=== PATIENT | female | born 1940 | race Caucasian/White ===

== ENCOUNTER 2017-07-06 11:40 | Inpatient (IN) ==
--- NOTE | 2017-07-05 21:19 | Discharge Summary ---
<Claire Lovelace E - Last Filed: 07/05/17 21:17> Date of Encounter: 07/05/17 - Discharge Diagnosis (1) Osteoarthritis of left knee Priority: Primary Status: Chronic Qualifiers: Osteoarthritis type: unspecified Qualified Code(s): M17.12 - Unilateral primary osteoarthritis, left knee (2) Seizure disorder Priority: Secondary Status: Chronic (3) Obesity Priority: Secondary Status: Chronic Qualifiers: Obesity type: unspecified obesity type Obesity classification: unspecified obesity classification Serious obesity comorbidity presence: unspecified whether serious comorbidity present Qualified Code(s): E66.9 - Obesity, unspecified (4) Noncompliance with CPAP treatment Priority: Secondary Status: Chronic (5) HTN (hypertension) Priority: Secondary Status: Chronic Qualifiers: Hypertension type: unspecified Qualified Code(s): I10 - Essential (primary ) hypertension (6) HLD (hyperlipidemia) Priority: Secondary Status: Chronic Qualifiers: Hyperlipidemia type: unspecified Qualified Code(s): E78.5 - Hyperlipidemia , unspecified (7) Diabetes mellitus Priority: Secondary Status: Chronic Qualifiers: Diabetes mellitus type: other specified (including KYE) Diabetes mellitus complication status: with unspecified complications Diabetes mellitus residential insulin use: with rn long term care use Qualified Code(s): E13.8 - Other specified diabetes mellitus with unspecified complications; Z79.4 - group home ( current) use of insulin; Z79.4 - group home (current) use of insulin; Z79.4 - rn long term care (current) use of insulin; Z79.4 - group home (current) use of insulin (8) rn long term care current use of anticoagulant Priority: Secondary Status: Chronic (9) History of CVA (cerebrovascular accident) Status: Chronic - Discharge Medications Home Medications: Citalopram Hydrobromide [Celexa] 40 mg PO DAILY 07/23/15 [History] Insulin ASPART [NovoLOG] 10 - 20 unit SQ TID 07/23/15 [History] Insulin DETEMIR [Levemir] 40 unit SQ BID 07/23/15 [History] Montelukast [Singulair] 10 mg PO HS 07/23/15 [History] Potassium Chloride [K-Tab ER] 10 meq PO DAILY 07/23/15 [History] Warfarin [Coumadin] 6 mg PO SUTUFR 07/23/15 [History] clonazePAM [Klonopin] 0.5 mg PO BID 07/23/15 [History] Enoxaparin [Lovenox] 30 mg SQ Q12HR 03/02/17 [History] Furosemide [Lasix] 40 mg PO DAILY 03/02/17 [History] OxyCODONE Immed Rel [Roxicodone 5 MG] 5 mg PO Q6HR PRN 7 Days #28 tablet [Rx] Atorvastatin [Lipitor] 40 mg PO HS 07/06/17 [History] Carvedilol 12.5 mg PO BID 07/06/17 [History] Gabapentin [Neurontin] 300 mg PO TID 07/06/17 [History] Phenytoin [Dilantin] 200 mg PO Q12HR 07/06/17 [History] Warfarin [Coumadin] 3 mg PO MOWETHSA 07/06/17 [History] Allergies/Adverse Reactions: 3 Allergy/AdvReac Type Severity Reaction Status Date / Time exenatide [From Byetta] Allergy Rash Verified 07/06/17 12:35 fentanyl [From Duragesic] Allergy Blister Verified 07/06/17 12:35 Iodinated Contrast- Oral and Allergy Rash Verified 07/06/17 12:35 IV Dye morphine Allergy Itching Verified 07/06/17 12:35 Penicillins [PCN] Allergy Rash Verified 07/06/17 12:35 aspirin AdvReac Rash Verified 07/06/17 12:35 cilostazol AdvReac Vomiting Verified 07/06/17 12:35 duloxetine [From Cymbalta] AdvReac Vomiting Verified 07/06/17 12:35 latex AdvReac Blister Verified 07/06/17 12:35 levofloxacin [From Levaquin] AdvReac Vomiting Verified 07/06/17 12:35 ondansetron AdvReac Itching Verified 07/06/17 12:35 [From Zofran (as hydrochloride)] Sulfa (Sulfonamide AdvReac Vomiting Verified 07/06/17 12:35 Antibiotics) Telithromycin [From Ketek] AdvReac Itching Verified 07/06/17 12:35 Primary care physician: Telma Reynolds CNP - Patient Status Disposition: Transfer Inpatient Rehab Fac Condition: Good - Discharge Instructions Follow Up With: Telma Reynolds CNP [Primary Care Provider] - - Hospital Course Hospital course: Ms. Gruber is a 76 year old female - Time Spent with Patient Total time spent providing and/or coordinating discharge services: <Carlos Jones - Last Filed: 07/09/17 08:30> Date of Encounter: 07/09/17 Time of Encounter: 08:29 - Discharge Diagnosis (1) Anticoagulated on Coumadin Priority: Secondary Status: Chronic (2) History of CVA (cerebrovascular accident) Priority: Secondary Status: Chronic (3) DMII (diabetes mellitus, type 2) Priority: Secondary Status: Chronic Qualifiers: Diabetes mellitus complication status: without complication Diabetes mellitus residential insulin use: unspecified residential insulin use status Qualified Code(s): E11.9 - Type 2 diabetes mellitus without complications (4) HTN (hypertension) Priority: Secondary Status: Chronic Qualifiers: Hypertension type: essential hypertension Qualified Code(s): I10 - Essential (primary) hypertension (5) Obesity (BMI 35.0-39.9 without comorbidity) Priority: Secondary Status: Chronic (6) Osteoarthritis of left knee Priority: Primary Status: Chronic Qualifiers: Osteoarthritis type: unspecified Qualified Code(s): M17.12 - Unilateral primary osteoarthritis, left knee (7) Seizure disorder Priority: Secondary Status: Chronic (8) HTN (hypertension) Status: Chronic Qualifiers: Hypertension type: unspecified Qualified Code(s): I10 - Essential (primary ) hypertension (9) HLD (hyperlipidemia) Priority: Secondary Status: Chronic Qualifiers: Hyperlipidemia type: unspecified Qualified Code(s): E78.5 - Hyperlipidemia , unspecified (10) Status post total left knee replacement Priority: Primary Status: Acute (11) Acute blood loss anemia Priority: Primary Status: Acute Primary care physician: Telma Reynolds CNP - Patient Status Functional capacity at discharge: uses cane/walker Overall status at discharge: patient is progressing back to baseline - Hospital Course Hospital course: Ms. Gruber is a 76 year old female Status post left total knee replacement The patient had an uneventful postoperative course. They received antibiotics and physical therapy and were discharged in stable condition. There will follow -up in the office in 2 weeks. - Time Spent with Patient Total time spent providing and/or coordinating discharge services:
--- NOTE | 2017-07-05 21:24 | Physician Discharge Referral ---
ExtendedCare Referral Info Transfer To: [facility] Provider in Charge: Dr Carlos Jones - Diagnosis (1) Status post total left knee replacement Priority: Primary Status: Acute (2) Osteoarthritis of left knee Priority: Primary Status: Chronic (3) Seizure disorder Priority: Secondary Status: Chronic (4) Obesity Priority: Secondary Status: Chronic (5) Noncompliance with CPAP treatment Priority: Secondary Status: Chronic (6) HTN (hypertension) Priority: Secondary Status: Chronic (7) HLD (hyperlipidemia) Priority: Secondary Status: Chronic (8) Diabetes mellitus Priority: Secondary Status: Chronic (9) halfway current use of anticoagulant Priority: Secondary Status: Chronic (10) History of CVA (cerebrovascular accident) Priority: Secondary Status: Chronic Expected Duration of Placement: less than 30 days Prognosis: Good Aware of Diagnosis: Patient Aware of Prognosis: Patient - Transfer Medications Home Medications: Citalopram Hydrobromide [Celexa] 40 mg PO DAILY 07/23/15 [History] Insulin ASPART [NovoLOG] 10 - 20 unit SQ TID 07/23/15 [History] Insulin DETEMIR [Levemir] 40 unit SQ BID 07/23/15 [History] Montelukast [Singulair] 10 mg PO HS 07/23/15 [History] Potassium Chloride [K-Tab ER] 10 meq PO DAILY 07/23/15 [History] Warfarin [Coumadin] 6 mg PO SUTUFR 07/23/15 [History] clonazePAM [Klonopin] 0.5 mg PO BID 07/23/15 [History] Enoxaparin [Lovenox] 30 mg SQ Q12HR 03/02/17 [History] Furosemide [Lasix] 40 mg PO DAILY 03/02/17 [History] OxyCODONE Immed Rel [Roxicodone 5 MG] 5 mg PO Q6HR PRN 7 Days #28 tablet [Rx] Atorvastatin [Lipitor] 40 mg PO HS 07/06/17 [History] Carvedilol 12.5 mg PO BID 07/06/17 [History] Gabapentin [Neurontin] 300 mg PO TID 07/06/17 [History] Phenytoin [Dilantin] 200 mg PO Q12HR 07/06/17 [History] Warfarin [Coumadin] 3 mg PO MOWETHSA 07/06/17 [History] Allergies/Adverse Reactions: 3 Allergy/AdvReac Type Severity Reaction Status Date / Time exenatide [From Byetta] Allergy Rash Verified 07/06/17 12:35 fentanyl [From Duragesic] Allergy Blister Verified 07/06/17 12:35 Iodinated Contrast- Oral and Allergy Rash Verified 07/06/17 12:35 IV Dye morphine Allergy Itching Verified 07/06/17 12:35 Penicillins [PCN] Allergy Rash Verified 07/06/17 12:35 aspirin AdvReac Rash Verified 07/06/17 12:35 cilostazol AdvReac Vomiting Verified 07/06/17 12:35 duloxetine [From Cymbalta] AdvReac Vomiting Verified 07/06/17 12:35 latex AdvReac Blister Verified 07/06/17 12:35 levofloxacin [From Levaquin] AdvReac Vomiting Verified 07/06/17 12:35 ondansetron AdvReac Itching Verified 07/06/17 12:35 [From Zofran (as hydrochloride)] Sulfa (Sulfonamide AdvReac Vomiting Verified 07/06/17 12:35 Antibiotics) Telithromycin [From Ketek] AdvReac Itching Verified 07/06/17 12:35 - Respiratory Orders Smoking Cessation: Smoking cessation has been advised. For more information, call the [place] Tobacco Quit Line at 9-044-EJBK-NOW. - Lab Orders Lab Orders: Other (include drug levels w/frequency) (PT/INR for Coumadin monitoring. Patient therapeutic upon discharge at 2.2. Will discontinue Lovenox at this time.) - Ancillary Orders May use pressure relief devices daily prn, May go on HEIKE w/family/respon green party w /meds at nurse discretion PRN, May consult with Dentist, Senior Operations Analyst, Inspector Metal Can PRN - Mobility Orders Chair, Ambulate - Rehabiliation Orders Rehab Potential: Good Rehab Orders: Evaluation for Physical Therapy, Evaluation for Occupational Therapy Other: Total Knee replacement Precautions x 6 weeks Apply cold therapy wrap 3-6x/day for 20 minutes at a time. Encourage ambulation throughout the day and incentive spirometer 10x/hour. Elevate affected extremity above heart as tolerated. Brace: Wear knee immobilizer at night x 2 weeks. - Treatments Skin tear care topically daily PRN per policy List/Other: Opsite placed. Keep dressing intact until first follow up appointment. If > 50% saturated, notify office, remove dressing and place appropriate dressing back in place. Leave Zipline intact. Opsite dressing is water resistant, not water- proof. OK to shower, but do not get dressing wet. - Diet Orders Regular CERTIFICATION: I certify that the transfer of the above named patient to an Extended Care Facility is necessary for the continuing treatment of the diagnosis listed. The above information is true and accurate reflection of patient's current condition. Confidential - Redisclosure prohibited without a patient's written consent.
[2017-07-06] MEDS ORDERED: Lidocaine -MPF 1% 2 ML VIAL ID ONE (12:02)
[2017-07-06] MEDS ORDERED: Albuterol 2.5 MG/3 ML NEBULIZER IH ONE (12:02)
[2017-07-06] MEDS ORDERED: Clindamycin 900 MG/50 ML 900 MG/50 ML IV.SOLN IVPB ONE (12:02)
--- NOTE | 2017-07-06 12:24 | History & Physical Report ---
Date of Encounter: 07/06/17 Time of Encounter: 12:24 24 Hour HP Update - Instructions Instructions: If the History and Physical is less than 30 days old and was completed prior to A.M. admission and or procedure and has NOT been updated on calendar day of procedure please complete this update prior to performing procedure. - Update Patient reports changes in Medical Condition: No Changes in examination, assessment, or condition: No Changes in Medication: No Preop tests/diagnostics Reviewed: Yes Surgery Remains Indicated: Yes Consent for Planned Operative Procedure(s) Verified: Yes - Pre-Operative Checklist Preoperative Checklist Indicated: No Prophylactic Antibiotic Ordered: Yes Is VTE Prophylaxis Indicated?: Yes
[2017-07-06] MEDS: Ringers Solution, Lactated 1,000 ML IVC SCH ×2 (12:27→18:07)
[2017-07-06] MEDS ORDERED: Famotidine 20 MG/2 ML VIAL IVP ONE (13:01)
[2017-07-06] MEDS ORDERED: Pregabalin 75 MG CAPSULE PO ONE (13:02)
[2017-07-06] MEDS ORDERED: Acetaminophen IV 1,000 MG/100 ML INFUS..BTL IVPB ONE (13:04)
--- NOTE | 2017-07-06 13:22 | Anesthesia Evaluation PreOp ---
Date of Encounter: 07/06/17 Time of Encounter: 13:20 - Past History Planned Operation: 1320 Cardiac History: HTN, Hyperlipidemia Pulmonary History: Asthma SALON LEADER History: Seizures, CVA (2000 residual weaknes Rt side UE and LE) Other Medical History: Diabetes Type II Anesthesia History: No Prior Anesthetic Complications : No Alcohol Use: none Drug use: none Medications and Allergies Citalopram Hydrobromide [Celexa] 40 mg PO DAILY 07/23/15 [History] Insulin ASPART [NovoLOG] 10 - 20 unit SQ TID 07/23/15 [History] Insulin DETEMIR [Levemir] 40 unit SQ BID 07/23/15 [History] Montelukast [Singulair] 10 mg PO HS 07/23/15 [History] Potassium Chloride [K-Tab ER] 10 meq PO DAILY 07/23/15 [History] Warfarin [Coumadin] 6 mg PO SUTUFR 07/23/15 [History] clonazePAM [Klonopin] 0.5 mg PO BID 07/23/15 [History] Enoxaparin [Lovenox] 30 mg SQ Q12HR 03/02/17 [History] Furosemide [Lasix] 40 mg PO DAILY 03/02/17 [History] OxyCODONE Immed Rel [Roxicodone 5 MG] 5 mg PO Q6HR PRN 7 Days #28 tablet [Rx] Atorvastatin [Lipitor] 40 mg PO HS 07/06/17 [History] Carvedilol 12.5 mg PO BID 07/06/17 [History] Gabapentin [Neurontin] 300 mg PO TID 07/06/17 [History] Phenytoin [Dilantin] 200 mg PO Q12HR 07/06/17 [History] Warfarin [Coumadin] 3 mg PO MOWETHSA 07/06/17 [History] 3 Allergy/AdvReac Type Severity Reaction Status Date / Time exenatide [From Byetta] Allergy Rash Verified 07/06/17 12:35 fentanyl [From Duragesic] Allergy Blister Verified 07/06/17 12:35 Iodinated Contrast- Oral and Allergy Rash Verified 07/06/17 12:35 IV Dye morphine Allergy Itching Verified 07/06/17 12:35 Penicillins [PCN] Allergy Rash Verified 07/06/17 12:35 aspirin AdvReac Rash Verified 07/06/17 12:35 cilostazol AdvReac Vomiting Verified 07/06/17 12:35 duloxetine [From Cymbalta] AdvReac Vomiting Verified 07/06/17 12:35 latex AdvReac Blister Verified 07/06/17 12:35 levofloxacin [From Levaquin] AdvReac Vomiting Verified 07/06/17 12:35 ondansetron AdvReac Itching Verified 07/06/17 12:35 [From Zofran (as hydrochloride)] Sulfa (Sulfonamide AdvReac Vomiting Verified 07/06/17 12:35 Antibiotics) Telithromycin [From Ketek] AdvReac Itching Verified 07/06/17 12:35 - Meds/Allergy Pre-op Review Medications Reviewed: Yes Allergies Reviewed: Yes Beta Blockers on Current Med List: Yes (Took Coreg today 0600) Anesthesia Results - Labs Laboratory Tests 07/01/17 07/01/17 07/01/17 16:09 16:09 16:09 Hgb 12.8 Hct 39.7 Plt Count 186 PT 14.5 H INR 1.3 APTT 27.1 Sodium 138 Potassium 3.5 BUN 13 Creatinine 0.99 - Imaging EKG: report reviewed (SR left axis deviation) Anesthesia Exam O2 Sat Height 1.57 m Height 1.57 m Height 1.57 m Weight 87.997 kg Weight 87.997 kg Weight 87.997 kg O2 Sat by Pulse Oximetry 95 O2 Sat by Pulse Oximetry 95 Vital Signs Temp Pulse Resp BP Pulse Ox 98.9 F 68 18 125/55 95 07/06/17 12:06 07/06/17 12:06 07/06/17 12:06 07/06/17 12:06 07/06/17 12:06 Height: 5'2 Weight: 194 lbs NPO (# of Hours): MN Pain Scale: 0 - HEENT Pupil (Motor): Pupils equal, EOMI Mallampati: III Teeth: Edentulous Oral Opening: Less than or equal to 3 - SALON LEADER LOC: Oriented SALON LEADER Motor: Normal LUE, Normal LLE, Normal Face, Deficit RUE (slight weakness), Deficit RLE (slight weakness) SALON LEADER Sensory: Normal: RUE, LUE, RLE, LLE, Face - Cardiac Rhythm: Regular Murmur: None JVD: No Carotid Bruit: No - Pulmonary Breath Sounds: bilateral Clear Respiratory Effort: Symmetrical Anesthesia Assess/Plan ASA Score: 3 (HTN CVA Asthma DM) Modified Patricia Scale for Level of Consciousness: Cooperative, oriented, and tranquil Anesthetic Plan: General, Regional Monitoring Plan: Standard Monitors Recovery Plan: PACU (Discussed GA and RA, agrees to proceed)
[2017-07-06] MEDS ORDERED: *HR* OxyCODONE Immed Rel 5 MG TABLET PO PRN ×2 (14:22→18:33)
[2017-07-06] MEDS ORDERED: Lidocaine -MPF 2% 2 ML VIAL ONE (15:03)
[2017-07-06] MEDS ORDERED: *HR* Midazolam HCl 2 MG/2 ML VIAL ONE (15:03)
[2017-07-06] MEDS ORDERED: *HR* Propofol 200 MG/20 ML VIAL IVP ONE (15:03)
[2017-07-06] MEDS ORDERED: Dexamethasone 4 MG/ML VIAL ONE (15:05)
[2017-07-06] MEDS ORDERED: ROPIVACAINE HCL/PF 0.5% 30 ML VIAL ONE (15:06)
[2017-07-06] MEDS ORDERED: Bupivacaine/Clonidine Syringe 1 EACH SYRINGE ONE (15:06)
[2017-07-06] MEDS ORDERED: Ethanol\\Acetic Acid\\Na Ace\\Ben 1,000 ML IRRIG.SOLN IR ONE (15:07)
--- NOTE | 2017-07-06 15:32 | Anesthesia Procedures ---
Date of Encounter: 07/06/17 Time of Encounter: 15:15 Procedures: Anesthesia - Nerve Block Procedure Date: 07/06/17 Time: 15:15 Checklist: Correct Patient Identifier, Correct procedure, History checked Correct side: Left Blood Thinner: No Monitor Applied: EKG, BP, Pulse Oximetry Supplemental Oxygen via Nasal Cannula (L/min): 2 Sedation: Versed (mg): 2 Indication: Post Op Analgesia Pre-op Neuro Deficits: No Block Type: Femoral, Other (iPACK/ELLI) Catheter placed: No Sterile Technique: Yes Ultrasound used: Yes Anatomy identified: Yes Visual spread of Local: Yes Neuro Stimulation: Yes Nerve Stimulator Range: 0.2 - 0.4 mA Blood on Needle Aspiration: No Smooth Injection of Local: Yes Pain with Injection of Local: No Prep: Chlorhexadine Needle: 22 x 50 mm Stimuplex, 21 x 100 mm Stimuplex Local: 0.25% Bupivicaine w/Clonidine 20 mcg/cc (40 ml), Ropivacaine Volume (cc): 30 ropi. 40 bupi 0.25% Number of Attempts: 1 Complications: None/effective block Vitals: vss
[2017-07-06] MEDS ORDERED: Scopolamine Patch 1.5 MG PATCH.TD72 TD ONE (15:40)
[2017-07-06] MEDS ORDERED: Ondansetron 4 MG/2 ML VIAL IVP ONE (16:34)
[2017-07-06] MEDS ORDERED: *HR* Succinylcholine 200 MG/10 ML VIAL IVP ONE (16:37)
--- NOTE | 2017-07-06 16:38 | Orthopedic Operative Note ---
Date of procedure: 07/06/17 Pre-op diagnosis: Left knee arthritis Post-op diagnosis: same Procedure: Procedure: Left Total knee replacement Estimated blood loss: 200 cc Hardware: Metal and polyethylene replacement. Arthrex Femur: 4 Tibia: 3 PS insert: 13 Patella: 34 Exam Under anesthesia: Full flexion and extension no instability Procedural Notes: Grade 3 arthritic changes medial compartment patellofemoral joint. Operative procedure: The patient was brought to the operating room and placed on the operating room table. After general anesthesia was administered the operative knee was examined. Findings were noted in the exam under anesthesia. The operative extremity was prepped and draped in sterile surgical fashion. The patient received IV antibiotics prior to skin incision. A standard midline incision was made centered over the patella. The incision was made through the skin and subcutaneous tissue. A medial parapatellar tendon approach was performed. Care was taken to preserve tissue along the medial aspect of the patella. And to protect the patella tendon. The deep MCL was released off the medial tibia. The infra patella fat pad was excised. Knee was brought into flexion. Patient noted to have grade 3 arthritic changes medial compartment and patellofemoral joint. The entry hole was made for the intramedullary femoral guide. The guide was seated in 6 degrees of valgus. Anterior cut was made followed by the distal cut. The ACL the PCL the medial and the lateral menisci were excised. The tibia was subluxed forward. The entry hole was made for the intramedullary tibial guide. Guide was seated to resect 2 mm off the more abnormal side. The knee was brought into flexion the distal femur was sized to a 4. The femoral guide was seated, the anterior cut was made followed by the posterior condylar cut, followed by the chamfer cuts. The finishing guide was seated the box cut was made and the lug holes were drilled. The tibia was sized to a 3, the tibial tray was seated and prepared with the large drill followed by the fin cutter. Trial reduction revealed full extension no varus valgus instability with the appropriate 13 PS Veronique. The patella was everted and cut was made at the level of the insertion of the quadriceps and patella tendon. The patella was sized 34 the guide was seated and the lug holes are drilled. Trial reduction revealed excellent patella tracking. All trial components were removed all bony surfaces were irrigated. The tibia was cemented first followed by the femur. The 13 PS Veronique was seated and the knee was brought into full extension. The patella was cemented and held in place with the patellar holding clamp. After the cement had hardened, the knee sat for 2 minutes with a antibacterial saline solution. The knee was closed by the PA. The knee was then irrigated out with 2 L of pulse irrigation. The extensor mechanism was closed with #2 FiberWire suture and #2 PDS suture. The subcutaneous tissue was then irrigated and closed deep with #1 PDS suture superficially with 0 PDS suture and skin was closed with skin arnold. The patient was then placed in a sterile dressing and a postoperative brace extubated and transferred to recovery room in stable condition. Anesthesia: MAC, spinal Surgeon: Carlos Jones Was there an assistant professor of geography present: No Estimated blood loss (cc): 200 Condition: stable Disposition: PACU
[2017-07-06] MEDS: *HR* Promethazine 25 MG/ML VIAL IVP PRN ×2 (17:33→18:06)
[2017-07-06 17:46] LABS: Hematocrit 34.9 % (35.3-44.9); Hemoglobin 11.4 g/dL (11.5-15.4)
[2017-07-06] MEDS ORDERED: *HR* HYDROmorphone (PF) 1 MG/ML SYRINGE ONE (17:51)
--- NOTE | 2017-07-06 18:19 | Anesthesia Evaluation Post Op ---
Date of Encounter: 07/06/17 Time of Encounter: 18:19 - Vital Signs Vital Signs: Vital Signs/O2 Sat, Most Current Temp Pulse Resp BP Pulse Ox 98.6 F 62 20 139/58 97 07/06/17 18:12 07/06/17 18:12 07/06/17 18:12 07/06/17 18:12 07/06/17 18:12 - Lungs Lungs: Clear Ascult./Percussion - Airway Airway: Non-obstructed - Cardiovascular Regular Rate - Mental Status Mental Status: Alert & Oriented, Answers Appropriately - Pain Pain Scale: 5 Pain Scale used: Numeric (1 - 10) - Nausea Vomiting Nausea Vomiting: Not Present - Hydration Hydration: Ice chips, Has not voided - Discharge PostOp Status: Transfer Patient to floor
[2017-07-06] MEDS ORDERED: MOM Conc 10 ML UD.LIQ PO PRN (18:36)
[2017-07-06] MEDS ORDERED: Sennosides 8.6 MG TABLET PO PRN (18:36)
[2017-07-06] MEDS ORDERED: Temazepam 15 MG CAPSULE PO PRN (18:36)
[2017-07-06] MEDS ORDERED: Naloxone 0.4 MG/ML INJ IVP PRN (18:36)
[2017-07-06] MEDS ORDERED: Dextrose Gel 15 GM/37.5 ML TUBE PO PRN ×2 (18:36)
[2017-07-06] MEDS ORDERED: *HR* Dextrose 50 % in Water (Syg) 50 ML SYRINGE IVP PRN (18:36)
[2017-07-06] MEDS ORDERED: D5% in Water 1,000 ML IVC PRN (18:36)
[2017-07-06] MEDS ORDERED: Ringers Solution, Lactated 1,000 ML IVC SCH (18:36)
[2017-07-06] MEDS: clonazePAM 0.5 MG TABLET PO SCH (19:41)
[2017-07-06] MEDS: Gabapentin 300 MG CAPSULE PO SCH (19:42)
[2017-07-06] MEDS: Clindamycin 900 MG/50 ML 900 MG/50 ML IV.SOLN IVPB SCH ×2 (19:42→23:43)
[2017-07-06] MEDS: *HR* Enoxaparin 30 MG/0.3 ML SYRINGE SQ SCH (20:14)
[2017-07-06] MEDS: Insulin LISPRO 300 UNITS/3 ML VIAL SQ SCH ×2 (20:20→20:22)
[2017-07-06] MEDS: Insulin DETEMIR 100 UNIT/ML X5UNITS SQ SCH (20:31)
[2017-07-06 21:14] LABS: INR 1.2; Prothrombin Time 12.7 Seconds (9.4-12.1)
[2017-07-06] MEDS: *HR* Warfarin 3 MG TABLET PO SCH (23:43)
[2017-07-07] MEDS: *HR* Enoxaparin 30 MG/0.3 ML SYRINGE SQ SCH (06:10)
--- NOTE | 2017-07-07 06:56 | Orthopedics Progress Note ---
Date of Encounter: 07/07/17 Time of Encounter: 06:55 - Assessment and Plan (1) Anticoagulated on Coumadin Current Visit: No Status: Chronic (2) History of CVA (cerebrovascular accident) Current Visit: No Status: Chronic (3) DMII (diabetes mellitus, type 2) Current Visit: No Status: Chronic Qualifiers: Diabetes mellitus complication status: without complication Diabetes mellitus intermediate manager insulin use: unspecified fci insulin use status Qualified Code(s): E11.9 - Type 2 diabetes mellitus without complications (4) HTN (hypertension) Current Visit: No Status: Chronic Qualifiers: Hypertension type: essential hypertension Qualified Code(s): I10 - Essential (primary) hypertension (5) Obesity (BMI 35.0-39.9 without comorbidity) Current Visit: No Status: Chronic (6) Osteoarthritis of left knee Current Visit: No Status: Chronic Qualifiers: Osteoarthritis type: unspecified Qualified Code(s): M17.12 - Unilateral primary osteoarthritis, left knee (7) Seizure disorder Current Visit: No Status: Chronic (8) HTN (hypertension) Current Visit: No Status: Chronic Qualifiers: Hypertension type: unspecified Qualified Code(s): I10 - Essential (primary ) hypertension (9) HLD (hyperlipidemia) Current Visit: No Status: Chronic Qualifiers: Hyperlipidemia type: unspecified Qualified Code(s): E78.5 - Hyperlipidemia , unspecified (10) Status post total left knee replacement Current Visit: No Status: Acute Subjective Interval history: Patient was seen this morning doing well without complaints. Afebrile vital signs stable. Operative extremity: Neurovascularly intact Dressing clean dry and intact Calves nontender Assessment and plan: Continue with postoperative care Hematocrit 34 Objective Vital signs: Vital Signs Temp Pulse Resp BP Pulse Ox 07/07/17 06:29 97.7 F 53 16 99/67 99 07/07/17 03:44 98.0 F 63 15 112/55 93 07/06/17 23:49 98.7 F 60 15 128/66 93 07/06/17 21:45 98.5 F 60 16 103/66 97 07/06/17 20:40 98.4 F 57 15 92/56 97 07/06/17 19:40 98.5 F 66 15 124/77 97 07/06/17 19:10 98.1 F 64 15 127/75 96 07/06/17 18:59 98.1 F 64 14 116/74 93 07/06/17 18:42 61 20 121/54 07/06/17 18:32 61 20 126/51 95 07/06/17 18:22 60 20 123/48 97 07/06/17 18:12 98.6 F 62 20 139/58 97 07/06/17 18:02 64 20 98 07/06/17 17:52 64 20 146/68 97 07/06/17 17:42 64 20 153/66 98 07/06/17 17:32 64 20 150/69 98 07/06/17 17:22 65 20 140/60 97 07/06/17 17:12 99.4 F 72 20 126/91 94 07/06/17 15:09 72 118/78 97 07/06/17 12:29 18 95 07/06/17 12:06 98.9 F 68 18 125/55 95 Intake and Output 07/06/17 07/06/17 07/07/17 15:59 23:59 07:59 Intake Total 590 / 590 Output Total 200 / 200 Balance 390 / 390 Intake: IV Fluids 250 / 250 Lactated Ringers 1,000 ML @ 25 200 / 200 mls/hr IVC .Q24H [facility] Rx#: [id number] Cleocin Premix 900 MG/50 ML 900 50 / 50 mg In 50 ml @ 50 mls/hr IVPB Q8HR [facility] Rx#:[id number] Oral 340 / 340 Output: Estimated Blood Loss 200 / 200 Other: Weight 87.997 kg Blood Glucose* 204 308 201 - Labs CBC & BMP: 07/06/17 17:24 Labs: Abnormal lab results Hgb 11.4 g/dL (11.5-15.4) L 07/06/17 17:24 Hct 34.9 % (35.3-44.9) L 07/06/17 17:24 PT 12.7 Seconds (9.4-12.1) H 07/06/17 20:59 POC Glucose 308 (58-89) H 07/06/17 20:16 - VTE Documentation of Mechanical Device: Venous foot pump, device Consult Discharge Plan - Plan Referrals: Telma Reynolds, GUMMED TAPE PRESS OPERATOR [Primary Care Provider] -
[2017-07-07 07:35] LABS: Hematocrit 32.4 % (35.3-44.9); Hemoglobin 10.2 g/dL (11.5-15.4)
[2017-07-07] MEDS: Furosemide 40 MG TABLET PO SCH (08:17)
[2017-07-07] MEDS: Gabapentin 300 MG CAPSULE PO SCH ×3 (08:17→20:25)
[2017-07-07] MEDS: clonazePAM 0.5 MG TABLET PO SCH ×2 (08:17→20:25)
[2017-07-07] MEDS: *HR* OxyCODONE Immed Rel 5 MG TABLET PO PRN ×4 (08:22→23:30)
[2017-07-07] MEDS: Insulin LISPRO 300 UNITS/3 ML VIAL SQ SCH ×4 (08:23→20:27)
[2017-07-07] MEDS: Ondansetron 4 MG/2 ML VIAL IVP PRN (08:23)
[2017-07-07 10:29] LABS: BUN/Creatinine Ratio 17 (6-26); Blood Urea Nitrogen 18 mg/dL (8-23); Carbon Dioxide 29 mEq/L (23-29); Chloride 99 mEq/L (98-107); Glucose 248 mg/dL (70-105); Osmolality,Calculated 290 (280-300); Potassium 4.2 mEq/L (3.5-5.1); Sodium 135 mEq/L (136-145); eGFR For African Americans > 60 (> 60); eGFR For Non-African Americans 52 (> 60)
[2017-07-07] MEDS: Insulin DETEMIR 100 UNIT/ML X5UNITS SQ SCH ×2 (10:51→20:30)
--- NOTE | 2017-07-07 17:00 | Event Note ---
Date of Encounter: 07/07/17 Time of Encounter: 12:40 PCR- POD#1 L TKR Jones 07/06/17 PCR - Patient seen at bedside. Pain control: Adequate Participating in PT. All questions and concerns addressed. Educated on use of incentive spirometer, ambulation, and hydration. Patient educated on post-operative restrictions and care. Addressed: Exquisite calf pain - will order doppler. D/C plan: [facility]
[2017-07-07] MEDS ORDERED: *HR* Warfarin 3 MG TABLET PO SCH (18:00)
[2017-07-07] MEDS: *HR* Enoxaparin 100 MG/ML SYRINGE SQ SCH (18:18)
[2017-07-08] MEDS: *HR* OxyCODONE Immed Rel 5 MG TABLET PO PRN ×3 (03:31→14:59)
[2017-07-08] MEDS: *HR* Enoxaparin 100 MG/ML SYRINGE SQ SCH ×2 (05:09→16:34)
[2017-07-08 06:20] LABS: Hematocrit 29.4 % (35.3-44.9); Hemoglobin 9.5 g/dL (11.5-15.4)
[2017-07-08 06:37] LABS: Calcium 8.1 mg/dL (8.6-10.3); Potassium 3.7 mEq/L (3.5-5.1)
[2017-07-08] MEDS: Gabapentin 300 MG CAPSULE PO SCH ×3 (08:19→21:17)
[2017-07-08] MEDS: clonazePAM 0.5 MG TABLET PO SCH ×2 (08:19→21:22)
[2017-07-08] MEDS: Insulin LISPRO 300 UNITS/3 ML VIAL SQ SCH ×4 (08:20→21:17)
[2017-07-08] MEDS: Furosemide 40 MG TABLET PO SCH (08:21)
[2017-07-08] MEDS: Insulin DETEMIR 100 UNIT/ML X5UNITS SQ SCH ×2 (08:23→21:22)
[2017-07-08] MEDS: Ondansetron 4 MG/2 ML VIAL IVP PRN (08:36)
[2017-07-08 09:59] LABS: INR 1.5; Prothrombin Time 16.6 Seconds (9.4-12.1)
--- NOTE | 2017-07-08 10:28 | Orthopedics Progress Note ---
Date of Encounter: 07/08/17 Time of Encounter: 10:27 - Assessment and Plan (1) Anticoagulated on Coumadin Current Visit: No Status: Chronic (2) History of CVA (cerebrovascular accident) Current Visit: No Status: Chronic (3) DMII (diabetes mellitus, type 2) Current Visit: No Status: Chronic Qualifiers: Diabetes mellitus complication status: without complication Diabetes mellitus laborer [employer] insulin use: unspecified [facility] insulin use status Qualified Code(s): E11.9 - Type 2 diabetes mellitus without complications (4) HTN (hypertension) Current Visit: No Status: Chronic Qualifiers: Hypertension type: essential hypertension Qualified Code(s): I10 - Essential (primary) hypertension (5) Obesity (BMI 35.0-39.9 without comorbidity) Current Visit: No Status: Chronic (6) Osteoarthritis of left knee Current Visit: No Status: Chronic Qualifiers: Osteoarthritis type: unspecified Qualified Code(s): M17.12 - Unilateral primary osteoarthritis, left knee (7) Seizure disorder Current Visit: No Status: Chronic (8) HTN (hypertension) Current Visit: No Status: Chronic Qualifiers: Hypertension type: unspecified Qualified Code(s): I10 - Essential (primary ) hypertension (9) HLD (hyperlipidemia) Current Visit: No Status: Chronic Qualifiers: Hyperlipidemia type: unspecified Qualified Code(s): E78.5 - Hyperlipidemia , unspecified (10) Status post total left knee replacement Current Visit: No Status: Acute (11) Acute blood loss anemia Current Visit: Yes Status: Acute Subjective Interval history: Patient was seen this morning doing well without complaints. Afebrile vital signs stable. Operative extremity: Neurovascularly intact Dressing clean dry and intact Calves nontender Assessment and plan: Continue with postoperative care Hb 9.6 Objective Vital signs: Vital Signs Temp Pulse Resp BP Pulse Ox 07/08/17 08:18 98.8 F 81 16 107/76 90 07/08/17 03:35 99.4 F 77 16 120/67 94 07/08/17 00:06 100.7 F H 92 16 115/58 92 07/07/17 19:39 98.5 F 85 16 105/69 95 07/07/17 15:36 98.3 F 67 15 110/63 92 07/07/17 11:47 97.8 F 63 16 121/73 92 Intake and Output 0107/08/17 07/08/17 23:59 07:59 15:59 Intake Total 400 / 400 50 / 50 Balance 400 / 400 50 / 50 Intake: Oral 400 / 400 50 / 50 Other: Meal Dinner Percent of Meal Consumed 60% # Voids 1 Blood Glucose* 107 193 - Labs CBC & BMP: 07/08/17 05:50 07/08/17 05:50 Labs: Abnormal lab results Hgb 9.5 g/dL (11.5-15.4) L 07/08/17 05:50 Hct 29.4 % (35.3-44.9) L 07/08/17 05:50 PT 16.6 Seconds (9.4-12.1) H 07/08/17 09:10 BUN 26 mg/dL (8-23) H 07/08/17 05:50 Creatinine 1.37 mg/dL (0.60-1.20) H 07/08/17 05:50 Est GFR ( Amer) 45 (> 60) L 07/08/17 05:50 Est GFR (Non-Af Amer) 37 (> 60) L 07/08/17 05:50 Glucose 175 mg/dL (70-105) H 07/08/17 05:50 POC Glucose 107 (58-89) H 07/07/17 19:29 Calcium 8.1 mg/dL (8.6-10.3) L 07/08/17 05:50 - VTE Documentation of Mechanical Device: Venous foot pump, device Consult Discharge Plan - Plan Referrals: Telma Reynolds, [employer]EW[employer] T[employer] SUPERVISOR [Primary Care Provider] -
[2017-07-08] MEDS: *HR* Warfarin 3 MG TABLET PO SCH (16:35)
[2017-07-09] MEDS: *HR* Enoxaparin 100 MG/ML SYRINGE SQ SCH (05:08)
[2017-07-09] MEDS: *HR* OxyCODONE Immed Rel 5 MG TABLET PO PRN ×3 (05:14→15:16)
[2017-07-09 08:04] LABS: Hematocrit 26.5 % (35.3-44.9); Hemoglobin 8.4 g/dL (11.5-15.4)
[2017-07-09 08:20] LABS: BUN/Creatinine Ratio 20 (6-26); Blood Urea Nitrogen 21 mg/dL (8-23); Carbon Dioxide 25 mEq/L (23-29); Chloride 101 mEq/L (98-107); Glucose 80 mg/dL (70-105); Osmolality,Calculated 286 (280-300); Potassium 3.8 mEq/L (3.5-5.1); Sodium 137 mEq/L (136-145); eGFR For African Americans > 60 (> 60); eGFR For Non-African Americans 50 (> 60)
[2017-07-09] MEDS: Insulin LISPRO 300 UNITS/3 ML VIAL SQ SCH ×2 (08:21→12:19)
[2017-07-09] MEDS: Gabapentin 300 MG CAPSULE PO SCH ×2 (08:26→15:16)
[2017-07-09] MEDS: clonazePAM 0.5 MG TABLET PO SCH (08:26)
--- NOTE | 2017-07-09 08:31 | Orthopedics Progress Note ---
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 insulin use status Qualified Code(s): E11.9 - Type 2 diabetes mellitus without complications (4) HTN (hypertension) Current Visit: No Status: Chronic Qualifiers: Hypertension type: essential hypertension Qualified Code(s): I10 - Essential (primary) hypertension (5) Obesity (BMI 35.0-39.9 without comorbidity) Current Visit: No Status: Chronic (6) Osteoarthritis of left knee Current Visit: No Status: Chronic Qualifiers: Osteoarthritis type: unspecified Qualified Code(s): M17.12 - Unilateral primary osteoarthritis, left knee (7) Seizure disorder Current Visit: No Status: Chronic (8) HTN (hypertension) Current Visit: No Status: Chronic Qualifiers: Hypertension type: unspecified Qualified Code(s): I10 - Essential (primary ) hypertension (9) HLD (hyperlipidemia) Current Visit: No Status: Chronic Qualifiers: Hyperlipidemia type: unspecified Qualified Code(s): E78.5 - Hyperlipidemia , unspecified (10) Status post total left knee replacement Current Visit: No Status: Acute (11) Acute blood loss anemia Current Visit: Yes Status: Acute Subjective Interval history: Patient was seen this morning doing well without complaints. Afebrile vital signs stable. Operative extremity: Neurovascularly intact Dressing clean dry and intact Calves nontender Assessment and plan: Continue with postoperative care Hb8.4 discharged today Objective Vital signs: Vital Signs Temp Pulse Resp BP Pulse Ox 07/09/17 06:25 98.7 F 78 16 107/68 95 07/08/17 23:45 99.0 F 72 16 108/67 96 07/08/17 20:21 97.9 F 83 16 139/73 96 07/08/17 14:57 99 F 75 16 123/65 86 07/08/17 11:16 99.5 F 81 14 133/74 95 Intake and Output 07/08/17 07/09/17 07/09/17 23:59 07:59 15:59 Intake Total 240 / 240 Output Total 0 / 0 Balance 240 / 240 Intake: Oral 240 / 240 Output: Urine 0 / 0 Other: Meal Dinner Percent of Meal Consumed 25% # Urine Diapers 1 Blood Glucose* 144 87 - Labs CBC & BMP: 07/09/17 07:51 07/09/17 07:51 Labs: Abnormal lab results Hgb 8.4 g/dL (11.5-15.4) L 07/09/17 07:51 Hct 26.5 % (35.3-44.9) L 07/09/17 07:51 PT 16.6 Seconds (9.4-12.1) H 07/08/17 09:10 Est GFR (Non-Af Amer) 50 (> 60) L 07/09/17 07:51 Calcium 8.0 mg/dL (8.6-10.3) L 07/09/17 07:51 - VTE Documentation of Mechanical Device: Venous foot pump, device Consult Discharge Plan - Plan Referrals: Telma Reynolds, AGRONOMY PROFESSOR [Primary Care Provider] -
[2017-07-09 09:02] LABS: INR 2.2; Prothrombin Time 24.1 Seconds (9.4-12.1)
[2017-07-09] MEDS: Ondansetron 4 MG/2 ML VIAL IVP PRN (09:15)
[2017-07-09] MEDS: Insulin DETEMIR 100 UNIT/ML X5UNITS SQ SCH (11:01)
[2017-07-09] MEDS: Furosemide 40 MG TABLET PO SCH (11:01)
[2017-07-09 11:46] VITALS: BP 107/73
== END 2017-07-09 16:28 | DRG 470 ==
LOC: SAMDAY 11:40 → 3NENU 19:06
PROVIDERS: ADMIT Orthopaedic Surgery; ATTEND Orthopaedic Surgery

== ENCOUNTER 2019-06-23 10:43 | Inpatient (IN) ==
[2019-06-23] MEDS ORDERED: Ringers Solution, Lactated 1,000 ML IVC SCH ×3 (11:30→16:48)
[2019-06-23] MEDS ORDERED: *HR* OxyCODONE Immed Rel 5 MG TABLET PO PRN (12:30)
[2019-06-23] MEDS ORDERED: *HR* HYDROmorphone (PF) 1 MG/ML SYRINGE IVP PRN (12:30)
[2019-06-23] MEDS ORDERED: Scopolamine Patch 1.5 MG PATCH.TD72 TD ONE (12:32)
[2019-06-23] MEDS ORDERED: EPHEDrine 50 MG/ML VIAL ONE ×2 (13:29→14:47)
[2019-06-23] MEDS ORDERED: *HR* Succinylcholine 200 MG/10 ML VIAL IVP ONE (13:38)
[2019-06-23] MEDS ORDERED: *HR* Propofol 200 MG/20 ML VIAL IVP ONE (13:38)
[2019-06-23] MEDS ORDERED: Ondansetron 4 MG/2 ML VIAL ONE (13:38)
[2019-06-23] MEDS ORDERED: *HR* FentaNYL (PF) 100 MCG/2 ML VIAL ONE ×2 (13:38→15:26)
[2019-06-23] MEDS ORDERED: Dexamethasone 4 MG/ML VIAL ONE ×2 (13:38→14:41)
[2019-06-23] MEDS ORDERED: Lidocaine -MPF 2% 2 ML VIAL ONE (13:38)
[2019-06-23] MEDS ORDERED: Ropivacaine/PF 0.5% 30 ML VIAL ONE (13:47)
[2019-06-23] MEDS ORDERED: Ethanol\\Acetic Acid\\Na Ace\\Ben 1,000 ML IRRIG.SOLN IR ONE (14:11)
[2019-06-23] MEDS ORDERED: Metoclopramide 10 MG/2 ML VIAL ONE (14:43)
[2019-06-23] MEDS ORDERED: D5% in Lactated Ringers 500 ML IV SOLUTION IVC STA (15:39)
[2019-06-23] MEDS: *HR* Promethazine 25 MG/ML VIAL IVP PRN ×2 (15:42→16:16)
[2019-06-23] MEDS ORDERED: LACTATED RINGERS IVC ONE (15:44)
[2019-06-23] MEDS ORDERED: D5 IVC ONE (15:44)
[2019-06-23] MEDS ORDERED: D5% in Lactated Ringers 1,000 ML IVC ONE (16:00)
[2019-06-23 16:41] LABS: Hematocrit 42.1 % (35.3-44.9); Hemoglobin 13.2 g/dL (11.5-15.4)
[2019-06-23] MEDS ORDERED: *HR* Dextrose 50 % in Water (Syg) 50 ML SYRINGE IVP PRN (16:48)
[2019-06-23] MEDS ORDERED: clonazePAM 0.5 MG TABLET PO PRN (16:48)
[2019-06-23] MEDS ORDERED: *HR* OxyCODONE/APAP 5/325 TABLET PO PRN (16:48)
[2019-06-23] MEDS ORDERED: Sennosides 8.6 MG TABLET PO PRN (16:48)
[2019-06-23] MEDS ORDERED: D5% in Water 1,000 ML IVC PRN (16:48)
[2019-06-23] MEDS ORDERED: Dextrose Gel 15 GM/37.5 ML TUBE PO PRN ×2 (16:48)
[2019-06-23] MEDS ORDERED: MOM Conc 10 ML UD.LIQ PO PRN (16:48)
[2019-06-23] MEDS ORDERED: Ondansetron 4 MG/2 ML VIAL IVP PRN (16:48)
[2019-06-23] MEDS ORDERED: Temazepam 15 MG CAPSULE PO PRN (16:48)
[2019-06-23] MEDS ORDERED: Naloxone 0.4 MG/ML INJ IVP PRN (16:48)
[2019-06-23] MEDS: Insulin LISPRO 300 UNITS/3 ML VIAL SQ SCH (17:52)
[2019-06-23] MEDS ORDERED: *HR* Warfarin 3 MG TABLET PO SCH (18:00)
[2019-06-23] MEDS ORDERED: *HR* Enoxaparin 30 MG/0.3 ML SYRINGE SQ SCH (18:00)
[2019-06-23] MEDS: Gabapentin 300 MG CAPSULE PO SCH ×2 (19:09→20:33)
[2019-06-23] MEDS: carvediloL 6.25 MG TABLET PO SCH (19:15)
[2019-06-23 19:53] LABS: INR 1.2; Prothrombin Time 13.8 Seconds (9.4-12.1)
[2019-06-23] MEDS: *HR* Enoxaparin 30 MG/0.3 ML SYRINGE SQ SCH (20:06)
[2019-06-23] MEDS ORDERED: Insulin LISPRO 300 UNITS/3 ML VIAL SQ SCH (21:00)
[2019-06-23] MEDS: Clindamycin 900 MG/50 ML 900 MG/50 ML IV.SOLN IVPB SCH (21:02)
[2019-06-23] MEDS: *HR* OxyCODONE Immed Rel 5 MG TABLET PO PRN (21:09)
[2019-06-24] MEDS: *HR* OxyCODONE Immed Rel 5 MG TABLET PO PRN ×2 (04:29→13:46)
[2019-06-24] MEDS: Clindamycin 900 MG/50 ML 900 MG/50 ML IV.SOLN IVPB SCH (04:30)
[2019-06-24] MEDS: *HR* Enoxaparin 30 MG/0.3 ML SYRINGE SQ SCH (04:31)
[2019-06-24 06:10] LABS: Hematocrit 36.3 % (35.3-44.9); Hemoglobin 11.9 g/dL (11.5-15.4)
[2019-06-24 06:28] LABS: BUN/Creatinine Ratio 19 (6-26); Blood Urea Nitrogen 16 mg/dL (8-23); Calcium 8.4 mg/dL (8.6-10.3); Carbon Dioxide 27 mEq/L (23-29); Chloride 101 mEq/L (98-107); Glucose 179 mg/dL (70-105); Osmolality,Calculated 290 (280-300); Potassium 3.4 mEq/L (3.5-5.1); Sodium 137 mEq/L (136-145); eGFR For African Americans > 60 (> 60); eGFR For Non-African Americans > 60 (> 60)
[2019-06-24] MEDS ORDERED: Furosemide 40 MG TABLET PO SCH (09:00)
[2019-06-24] MEDS ORDERED: Insulin DETEMIR 100 UNIT/ML X5UNITS SQ SCH (09:00)
[2019-06-24] MEDS: carvediloL 6.25 MG TABLET PO SCH (09:13)
[2019-06-24] MEDS: Gabapentin 300 MG CAPSULE PO SCH (09:13)
[2019-06-24] MEDS: Insulin LISPRO 300 UNITS/3 ML VIAL SQ SCH ×2 (09:14→11:59)
[2019-06-24 11:16] LABS: INR 1.2; Prothrombin Time 13.5 Seconds (9.4-12.1)
[2019-06-24 13:48] VITALS: BP 121/56
[2019-06-24] MEDS ORDERED: Clindamycin 900 MG/50 ML 900 MG/50 ML IV.SOLN IVPB SCH (20:00)
[2019-06-28] MEDS ORDERED: *HR* Warfarin 1 MG TABLET PO SCH (18:00)
== END 2019-06-24 14:52 | disposition home health service (06) | DRG 483 ==
LOC: SAMDAY 10:43 → 3NENU 16:49
PROVIDERS: ADMIT Orthopaedic Surgery; ATTEND Orthopaedic Surgery